=== PATIENT | female | born 1995 | race Caucasian/White ===

== ENCOUNTER → 2016-04-15 | Outpatient (REF) | payer BC, MEDICAID | LOC: M LAB REF 16:49 | PROVIDERS: ATTEND Advanced Practice Midwife | DX: Z34.81 Encounter for supervision of other normal pregnancy, first trimester (principal) ==

== ENCOUNTER → 2016-07-01 | Outpatient (CLI) | payer BC, MEDICAID ==
--- NOTE | 2016-07-01 16:00 | REP ---
Clinical: Anatomical evaluation. Comparison: None . Findings: Examination demonstrates a single live intrauterine in cephalic presentation. motion is identified by technologist. Placenta is noted posteriorly and grade zero without evidence for placenta previa or abruption. Amniotic fluid volume is normal. Cervix measures 3.5 cm in length and appears closed. No evidence for nuchal cord. Gestational age by current measurements 20 weeks 1 day with BRENNON 11/17/2016 . FHR equals 144 beats per minute. BPD 5.1 cm 21 weeks 2 days HC 18.2 cm 20 weeks 4 days AC 14.7 cm 20 weeks 0 days FL 3.2 cm 20 weeks 0 days HL 3.1 cm 20 weeks 2 days HC/AC ratio 1.24 Estimated weight 330 grams ( 43rd percentile). Anatomical assessment demonstrates normal structures including cranium, choroid plexus, cavum, cerebellum/posterior fossa, facial features, lungs, four-chamber heart/ventricular outflow tracts, diaphragm, stomach, cord insertion/three-vessel cord, kidneys/bladder, spine, and extremities. There is a 3 mm echogenic focus likely calcification lateral to the stomach in the left upper quadrant of uncertain significance or etiology. The adjacent and surrounding organs appear intact and normal. Impression: 1. Single live intrauterine in cephalic presentation. 2. Anatomical assessment is complete and normal. 3. Small 3 mm echogenic focus in the left upper quadrant adjacent to the stomach of uncertain significance or etiology. Consider reevaluation in 4-6 weeks. Signed by Endy Vences MD 07/01/2016 03:52 P
== END ==
LOC: M SMT 13:57
PROVIDERS: ATTEND Obstetrics & Gynecology
DX: Z36 Encounter for antenatal screening of mother (principal); Z3A.20 20 weeks gestation of pregnancy

== ENCOUNTER → 2016-07-15 | Outpatient (CLI) | payer BC, MEDICAID ==
--- NOTE | 2016-07-15 14:36 | REP ---
Follow-up obstetric ultrasonography for abdominal left upper quadrant echogenic focus: Comparison is 07/01/2016. There is a single intrauterine gestation in a breech presentation. There is movement and cardiac activity with a heart rate of 136 beats per minute. The placenta is posterior with no previa or abruptio with grade zero maturity. Amniotic fluid volume subjectively is normal. Cervix measures 4.8 centimeters length. heart rate is 144 beats per minute. By today's measurements the gestational age is 22 weeks 0 days with an BRENNON of 11/18/2016. By the first ultrasound during this gestation gestational age is 22 weeks 1 day. weight is 507 grams (1 pound 1 ounce). This is the 54th percentile for 22 weeks 1 day. The previously identified echogenic focus persists on the study today in the abdominal left upper quadrant measuring approximately 3 mm, unchanged. This is nonspecific but could represent a peritoneal calcification related to the stomach, spleen or diaphragm or a mesenteric calcification. The remainder of the anatomy previously was unremarkable and is unremarkable again today. Impression: Persisting small calcification in the abdominal left upper quadrant as described. It is unchanged from the prior study. This is likely a peritoneal or mesenteric calcification. If there is continuing concern for this finding, consider consultation with a dedicated center. Signed by Ravin Coyne MD 07/15/2016 02:27 P
== END ==
LOC: M SMT 13:09
PROVIDERS: ATTEND Advanced Practice Midwife
DX: Z36 Encounter for antenatal screening of mother (principal); Z3A.22 22 weeks gestation of pregnancy

== ENCOUNTER → 2016-08-05 | Outpatient (CLI) | payer BC, MEDICAID ==
[2016-08-05 13:24] LABS: BASO % 0.1 % (0.0-1.0); EOS # 0.6 K/mm3 (0.0-0.50); EOS % 6.4 % (0.0-3.0); LARGE UNSTAINED CELL # 0.1 K/mm3 (0.0-0.4); LARGE UNSTAINED CELL % 0.8 % (0.0-4.0); LYMPH # 1.4 K/mm3 (1.5-6.5); LYMPH % 13.4 % (24.0-44.0); MEAN CORPUSCULAR HEMOGLOBIN 31.5 pg (27.0-33.0); MEAN CORPUSCULAR HGB CONC 34.3 g/dl (32.0-36.5); MEAN CORPUSCULAR VOLUME 91.8 fl (80.0-96.0); MONO # 0.5 K/mm3 (0.0-0.8); MONO % 5.5 % (0.0-5.0); NEUTROPHILS # 7.2 K/mm3 (1.8-7.7); NEUTROPHILS % 73.8 % (36.0-66.0); PLATELET COUNT, AUTOMATED 195 k/mm3 (150-450); RED CELL DISTRIBUTION WIDTH 12.9 % (11.5-14.5); WHITE BLOOD COUNT 9.8 K/mm3 (4.0-10.0)
== END ==
LOC: M SMT 10:08
PROVIDERS: ATTEND Advanced Practice Midwife
DX: Z34.83 Encounter for supervision of other normal pregnancy, third trimester (principal)

== ENCOUNTER → 2016-08-09 | Outpatient (CLI) | payer BC, MEDICAID | LOC: M SMT 08:33 | PROVIDERS: ATTEND Advanced Practice Midwife | DX: Z31.430 Encounter of female for testing for genetic disease carrier status for procreative management (principal) ==

== ENCOUNTER → 2016-08-18 | Outpatient (CLI) | payer BC, MEDICAID ==
[~2016-08-18] MED LIST: ACET50TA PO; PRENTAB9 PO
== END ==
LOC: M LAB 07:50
PROVIDERS: ATTEND Advanced Practice Midwife
DX: Z34.83 Encounter for supervision of other normal pregnancy, third trimester (principal)

== ENCOUNTER → 2016-10-21 | Outpatient (REF) | payer BC, MEDICAID | LOC: M LAB REF 14:40 | PROVIDERS: ATTEND Specialist | DX: Z34.83 Encounter for supervision of other normal pregnancy, third trimester (principal) ==

== ENCOUNTER 2016-10-23 06:58 | Inpatient (IN) | payer BC, MEDICAID ==
[2016-10-23] VITALS (22 sets, daily range): BP systolic 82–130; BP diastolic 47–77
[~2016-10-23] VITALS: Ht 160 cm; Wt 137.8 kg
[2016-10-23] MEDS ORDERED: PRENTAB9 PO (07:15)
[2016-10-23] MEDS ORDERED: ACET50TA PO (07:16)
[2016-10-23] MEDS ORDERED: LR 1,000 ML IV SCH (07:41)
[2016-10-23] MEDS ORDERED: LACTATED RINGER'S 1000 ML IV STA (07:41)
[2016-10-23 07:57] LABS: MEAN CORPUSCULAR HEMOGLOBIN 31.4 pg (27.0-33.0); MEAN CORPUSCULAR VOLUME 87.2 fl (80.0-96.0); RED CELL DISTRIBUTION WIDTH 13.2 % (11.5-14.5); WHITE BLOOD COUNT 12.2 K/mm3 (4.0-10.0)
[2016-10-23] MEDS ORDERED: FENTANYL 2MCG/ML ROPIVACAINE 0.2% IN 0.9% NACL 200ML IVBAG As Ordered ONE (09:13)
[2016-10-23] MEDS ORDERED: EPIDURAL COMMENT XX SCH (12:00)
[2016-10-23] MEDS ORDERED: FENTANYL/ROPIVACAINE/NACL BAG 200 ML EPIDURAL SCH (12:00)
[2016-10-23] MEDS ORDERED: NALOXONE INJ 0.4 MG/1 ML VIAL (J2310) IV PRN (12:00)
[2016-10-23] MEDS ORDERED: EPIDURAL/PCA KEYS XX PRN (12:00)
[2016-10-23] MEDS ORDERED: REFRIGERATOR IV KEYS XX PRN (12:00)
[2016-10-23] MEDS ORDERED: ONDANSETRON 4MG/2ML VIAL (J2405) IV PRN (12:00)
[2016-10-23] MEDS ORDERED: diphenhydrAMINE INJ 50MG/ML VIAL (J1200) IV PRN (12:00)
[2016-10-23] MEDS ORDERED: ePHEDrine SULFATE 25 MG/5 ML(5MG/ML) SYRINGE IV PRN (12:00)
[2016-10-23] MEDS ORDERED: LACTATED RINGER'S 1000 ML IV PRN (12:00)
--- NOTE | 2016-10-23 14:27 | HPE ---
DATE OF ADMISSION: 10/23/2016 21-year-old, 1, para 0, at 36-4/7 weeks gestation by last menstrual period of 02/10/2016 for an estimated date of delivery of 11/16/2016 presents with complaints of contractions starting around of 0300 hours. Upon evaluation, she is 5 cm, 100% effaced, 0 station. She reports active movement. Denies loss of fluid or bleeding. Last menstrual period 02/10/2016 for BRENNON of 11/16/2016. Sono at 8 weeks 6 days confirmed her due date. Prepregnancy weight was 123. Total weight gain 14 pounds. She has been normotensive through the . Last office visit was at 36 weeks 2 days on 10/21/2016. has been uncomplicated with the exception of the onset of labor today. Anatomy scan within normal limits except a noted abdominal foci that was seen on multiple sonograms. Followup at the center was reassuring/.. She is allergic to AMOXICILLIN. Reports hives but no respiratory distress. Medical history is significant for asthma. Family history is noncontributory. is also significant for a depression screen of 14. At the time, she reported relationship issues and sought counseling. GYNECOLOGIC HISTORY: Menarche age 15. Monthly menses every 28 days. Conceived on control pills. No history of sexually transmitted infections. SOCIAL HISTORY: Single. Father of the baby is present at the bedside, supportive. Denies tobacco, alcohol or drugs. OBJECTIVE: Labs are AB+, antibody negative. Initial hemoglobin and hematocrit 12.3 and 36.2 with platelets of 259. Rubella immune. VDRL, hepatitis B, hepatitis C, HIV, gonorrhea, Chlamydia all negative. She was determined to be negative for cystic fibrosis carrier. She declined genetic screening. Group B strep is positive. Sensitivities are pending. Vital signs are stable. She is in no apparent distress, coping well. Breathing with contractions. Breast exam was deferred. Abdomen is soft, nontender, gravid, longitudinal lie, vertex by Monty. Contractions 2-4 minutes apart, 45-60 seconds, moderate to palpation. heart 150, moderate variability with accelerations, category 1 tracing. Sterile vaginal exam: 5 cm, 100% effaced, 0 station, intact membranes and cephalic. ASSESSMENT: 21-year-old, 1, at 36 weeks 4 days gestation, in active labor, category 1 tracing. PLAN: Admit per consultation Dr. Cruz, who is aware of patient's status. Treat for group B strep. She is undecided about an epidural and anticipate normal spontaneous vaginal . MTDD
[2016-10-23] MEDS ORDERED: ceFAZolin SOD 1 GM in D5W MINI-BAG PLUS 50 ML IV SCH (16:00)
[2016-10-23] MEDS ORDERED: OXYTOCIN 30 UNITS IN 0.9% NaCl 500ML IV BAG (J2590) As Ordered ONE (16:45)
[2016-10-23 17:02] LABS: CORD GAS ABE A -8.2; CORD GAS HCO3 A 20.8 MEQ/L; CORD GAS O2 SAT A 31.9 %; CORD GAS PCO2 A 57.5 mmHg; CORD GAS PH A 7.176 UNITS; CORD GAS PO2 A 19.3 mmHg; CORD GAS SBC A 16.6 MEQ/L; CORD GAS TCO2 A 22.6 MEQ/L
[2016-10-23 17:04] LABS: CORD GAS ABE V -9.9; CORD GAS HCO3 V 19.7 MEQ/L; CORD GAS O2 SAT V 31.2 %; CORD GAS PCO2 V 59.2 mmHg; CORD GAS PH V 7.139 UNITS; CORD GAS SBC V 15.4 MEQ/L; CORD GAS TCO2 V 21.5 MEQ/L
[2016-10-23] MEDS ORDERED: OXYTOCIN DRIP 30 UNITS in APPROPRIATE DILUENT 1 EA IV SCH (18:08)
[2016-10-23] MEDS ORDERED: miSOPROStol 200 MCG TAB (S0191) PR ONE (18:15)
[2016-10-23] MEDS ORDERED: ACETAMINOPHEN 500 MG TAB PO PRN (18:15)
[2016-10-23] MEDS ORDERED: ANUSOL HC CREAM 30GM TOP PRN (18:15)
[2016-10-23] MEDS ORDERED: MEASLES,MUMPS,RUBELLA VACCINE INJ (MMR-II) (90707) SC SCH (18:15)
[2016-10-23] MEDS ORDERED: RHOGAM 300 MCG (1500 IU) INJ (J2790) IM SCH (18:15)
[2016-10-23] MEDS ORDERED: DOCUSATE SODIUM 100 MG CAP PO PRN (18:15)
[2016-10-23] MEDS ORDERED: DIBUCAINE 1% OINTMENT 30GM TOP PRN (18:15)
[2016-10-23] MEDS ORDERED: METHYLERGONOVINE MALEATE 0.2 MG TAB PO PRN (18:15)
[2016-10-23] MEDS ORDERED: MOM 30ML SUSPENSION UDC PO PRN (18:15)
[2016-10-23] MEDS: IBUPROFEN 800 MG TAB PO PRN (19:02)
--- NOTE | 2016-10-24 04:20 | DN ---
DATE OF SERVICE: 10/23/2016 Spontaneous active labor. Utilized epidural for labor coping. Artificial rupture of membranes 1307 for small amount of clear fluid, odorless. Fully dilated at 1609. Artificial rupture of membranes forebag at 1627 with blood tinged fluid. With initial push a moderate amount of blood followed. The intensive care unit (NICU) was alerted and Dr. Anthony obrien to be present for delivery. Viable male delivered left occiput anterior (CHRIS) without difficulty. Compound presentation with left fist at 1644 followed by a large gush of blood. Spontaneous respirations and cry. Cord immediately double clamped, cut by father of the baby. brought to [facility] for assessment by Dr. Lisa. scores 9 and 9. Cord gases obtained. Results 7.176 and 7.139. Placenta Ott intact with three-vessel cord at 1645. A 4 cm clot was noted on the periphery. Placenta to pathology. Fundus firmed with massage and intravenous (IV) Pitocin bolus. Misoprostol 1000 mcg rectally. Estimated blood loss 250 mL. Perineum, cervix and vagina inspected. First degree laceration to posterior vaginal wall repaired with 3-0 Vicryl Rapide. Bilateral labial abrasions noted at 11 and 1 o'clock. Right labia was reapproximated with one stitch. Sponge, sharp and instrument count correct. weight 5 pounds 5 ounces, 2416 grams. Parents are naming their son Able. was attended by Ivelisse Bell, student nurse psychotherapist and myself.
[2016-10-24 06:00] VITALS: BP 104/56
[2016-10-24] MEDS: PRENATAL VITAMINS CHEWABLE TABLET PO SCH (07:57)
[2016-10-24] MEDS: IBUPROFEN 800 MG TAB PO PRN ×2 (09:12→20:27)
[2016-10-24 18:00] VITALS: BP 110/62
[2016-10-25 06:06] VITALS: BP 104/53
[2016-10-25] MEDS: PRENATAL VITAMINS CHEWABLE TABLET PO SCH (07:35)
== END 2016-10-25 10:44 | disposition home or self-care (01) | DRG 560 ==
LOC: M LDO 06:58 → M LDI 07:47 → M OBS 19:15
PROVIDERS: ADMIT Advanced Practice Midwife; ATTEND Specialist
PROC: 10E0XZZ Delivery of Products of Conception, External Approach (ICD-10-PCS; principal; 2016-10-23)
PROC: 10907ZC Drainage of Amniotic Fluid, Therapeutic from Products of Conception, Via Natural or Artificial Opening (ICD-10-PCS; 2016-10-23)
PROC: 0HQ9XZZ Repair Perineum Skin, External Approach (ICD-10-PCS; 2016-10-23)
DX: O60.14X0 Preterm labor third trimester with preterm delivery third trimester, not applicable or unspecified (principal); O45.93 Premature separation of placenta, unspecified, third trimester; O64.5XX0 Obstructed labor due to compound presentation, not applicable or unspecified; Z3A.36 36 weeks gestation of pregnancy; Z88.8 Allergy status to other drugs, medicaments and biological substances; J45.909 Unspecified asthma, uncomplicated; O70.0 First degree perineal laceration during delivery; Z79.899 Other long term (current) drug therapy; O99.824 Streptococcus B carrier state complicating childbirth; O99.52 Diseases of the respiratory system complicating childbirth; Z37.0 Single live birth

== ENCOUNTER → 2016-12-05 | Outpatient (REF) | payer BC, MEDICAID ==
[2016-12-05 21:07] LABS: THYROXINE (T4) 10.1 UG/DL (4.5-12.0)
== END ==
LOC: M LABSMT 17:04
PROVIDERS: ATTEND Advanced Practice Midwife
DX: F32.89 Other specified depressive episodes (principal)

== ENCOUNTER → 2018-03-14 | Outpatient (REF) | payer BC, MEDICAID ==
[~2018-03-14] MED LIST changes: -ACET50TA PO; +MAPA500T2 PO
== END ==
LOC: M SFHCLERA 16:41
PROVIDERS: ATTEND Nurse Practitioner Family
DX: J02.9 Acute pharyngitis, unspecified (principal)

== ENCOUNTER → 2018-04-30 | Outpatient (REF) | payer BC, MEDICAID | LOC: M LAB REF 19:41 | PROVIDERS: ATTEND Advanced Practice Midwife | DX: Z12.4 Encounter for screening for malignant neoplasm of cervix (principal); R87.612 Low grade squamous intraepithelial lesion on cytologic smear of cervix (LGSIL) ==

== ENCOUNTER → 2018-06-28 | Outpatient (REF) | payer BC, MEDICAID ==
[2018-06-28 13:56] LABS: BASO % 0.2 % (0.0-1.0); EOS # 5.6 10^3/uL (0.0-0.50); HEMATOCRIT 41.6 % (36.0-47.0); HEMOGLOBIN 14.1 g/dl (12.0-15.5); LYMPH # 2.7 10^3/uL (1.5-6.5); LYMPH % 19.1 % (24.0-44.0); MEAN CORPUSCULAR HEMOGLOBIN 30.5 pg (27.0-33.0); MEAN CORPUSCULAR HGB CONC 33.9 g/dl (32.0-36.5); MEAN CORPUSCULAR VOLUME 89.8 fl (80.0-96.0); MONO # 0.9 10^3/uL (0.0-0.8); MONO % 6.6 % (0.0-5.0); NEUTROPHILS # 4.8 10^3/uL (1.8-7.7); NEUTROPHILS % 33.8 % (36.0-66.0); PLATELET COUNT, AUTOMATED 329 10^3/uL (150-450); RED BLOOD COUNT 4.63 10^6/uL (4.00-5.40); WHITE BLOOD COUNT 14.1 10^3/uL (4.0-10.0)
== END ==
LOC: M LAB REF 13:34
PROVIDERS: ATTEND Internal Medicine Pulmonary Disease
DX: J45.40 Moderate persistent asthma, uncomplicated (principal)

== ENCOUNTER → 2018-09-14 | Outpatient (CLI) | payer BC, MEDICAID ==
[2018-09-14 17:54] LABS: BASO % 0.1 % (0.0-1.0); EOS # 1.7 10^3/uL (0.0-0.50); HEMATOCRIT 39.1 % (36.0-47.0); HEMOGLOBIN 13.1 g/dl (12.0-15.5); LYMPH # 1.9 10^3/uL (1.5-6.5); LYMPH % 21.2 % (24.0-44.0); MEAN CORPUSCULAR HEMOGLOBIN 29.9 pg (27.0-33.0); MEAN CORPUSCULAR HGB CONC 33.5 g/dl (32.0-36.5); MEAN CORPUSCULAR VOLUME 89.3 fl (80.0-96.0); MONO # 0.8 10^3/uL (0.0-0.8); NEUTROPHILS # 4.5 10^3/uL (1.8-7.7); NEUTROPHILS % 50.6 % (36.0-66.0); PLATELET COUNT, AUTOMATED 291 10^3/uL (150-450); RED BLOOD COUNT 4.38 10^6/uL (4.00-5.40); WHITE BLOOD COUNT 8.9 10^3/uL (4.0-10.0)
[2018-09-21 13:09] LABS: IGE ASPERGILLUS TERREUS <0.35 kU/L (<0.35)
== END ==
LOC: M SMT 15:43
PROVIDERS: ATTEND Internal Medicine Pulmonary Disease
DX: J45.40 Moderate persistent asthma, uncomplicated (principal)

== ENCOUNTER → 2020-08-21 | Outpatient (CLI) | payer BC, MEDICAID ==
[2020-08-21 13:55] LABS: HEMATOCRIT 37.2 % (36.0-47.0); HEMOGLOBIN 12.4 g/dl (12.0-15.5); MEAN CORPUSCULAR HEMOGLOBIN 30.2 pg (27.0-33.0); MEAN CORPUSCULAR HGB CONC 33.3 g/dl (32.0-36.5); MEAN CORPUSCULAR VOLUME 90.5 fl (80.0-96.0); PLATELET COUNT, AUTOMATED 236 10^3/uL (150-450); RED BLOOD COUNT 4.11 10^6/uL (4.00-5.40); WHITE BLOOD COUNT 9.9 10^3/uL (4.0-10.0)
[2020-08-21 15:14] LABS: HIV 1&2 SCREEN CENTAUR NEGATIVE (NEGATIVE)
[2020-08-21 15:32] LABS: GC DNA AMPLIFICATION NEGATIVE (NEGATIVE)
== END ==
LOC: M PLALAB 11:18
PROVIDERS: ATTEND Advanced Practice Midwife
DX: Z34.01 Encounter for supervision of normal first pregnancy, first trimester (principal)

== ENCOUNTER → 2020-10-16 | Outpatient (REF) | payer BC, MEDICAID | LOC: M SFHCWAGY 13:00 | PROVIDERS: ATTEND Obstetrics & Gynecology | DX: O99.512 Diseases of the respiratory system complicating pregnancy, second trimester (principal); Z12.4 Encounter for screening for malignant neoplasm of cervix; R87.611 Atypical squamous cells cannot exclude high grade squamous intraepithelial lesion on cytologic smear of cervix (ASC-H) | CPT/HCPCS: 87086; G0123 ==

== ENCOUNTER → 2020-10-23 | Outpatient (REF) | payer BC, MEDICAID | LOC: M PLALAB 16:20 | PROVIDERS: ATTEND Obstetrics & Gynecology | DX: R85.612 Low grade squamous intraepithelial lesion on cytologic smear of anus (LGSIL) (principal); Z53.9 Procedure and treatment not carried out, unspecified reason ==

== ENCOUNTER → 2020-11-06 | Outpatient (CLI) | payer BC, MEDICAID ==
--- NOTE | 2020-11-06 10:10 | REP ---
INDICATION: ANATOMY. COMPARISON: None. TECHNIQUE: Real-time sonographic evaluation of the gravid uterus performed. FINDINGS: Estimated gestational age is19 weeks 5 days, EDC 03/28/2021. Today's measurements indicate appropriate growth. Presentation: Variable Placenta posterior, grade 0, without evidence of placenta previa. heart rate is recorded at 143 beats per minute. Amniotic fluid is subjectively normal. Closed cervical length is measured at 4.2 cm. Biometry chart: BPD: 47 mm, 20 weeks 1 days, 61st percentile. HC: 174 mm, 20 weeks 0 days, 57th percentile AC: 147 mm, 20 weeks 0 days, 55th percentile Femur length: 33 mm, 20 weeks 2 days, 63rd percentile HC to AC ratio: 1.19, normal range 1.06-1.25. Estimated weight: 331g, 67th percentile. anatomy: Cranium: Grossly normal Lateral Ventricles/Choroid Plexus: Grossly normal Posterior Fossa/Cerebellum: Grossly normal Nose/lips/profile: Grossly normal Four chamber heart: Grossly normal Right ventricular outflow tract: Grossly normal Left ventricular outflow tract: Grossly normal Left-sided stomach: Grossly normal Kidneys: Grossly normal Bladder: Grossly normal Cord Insertion: Grossly normal 3 vessel cord: Grossly normal Spine: Grossly normal IMPRESSION: Viable single intrauterine gestation as above. <Electronically signed by Ravin Manzo > 11/06/20 1007
== END ==
LOC: M WHC 08:29
PROVIDERS: ATTEND Obstetrics & Gynecology
DX: Z34.81 Encounter for supervision of other normal pregnancy, first trimester (principal); Z3A.19 19 weeks gestation of pregnancy

== ENCOUNTER 2021-02-17 13:56 | Outpatient (CLI) | payer BC, MEDICAID ==
[~2021-02-17] VITALS: Ht 160 cm; Wt 69.1 kg
[2021-02-17 14:26] VITALS: BP 116/67
[2021-02-17] MEDS ORDERED: BETAMETHASONE SOLUSPAN 6MG/ML 5ML VIAL (J0702 PER 3MG) IM SCH (16:00)
[2021-02-17 16:13] VITALS: BP 112/76
[2021-02-17 17:16] VITALS: BP 115/63
[2021-02-17 18:51] VITALS: BP 119/64
[2021-02-17 20:01] VITALS: BP 128/71
[2021-02-18] MEDS ORDERED: CLAR10CA3 PO (15:37)
[2021-02-18] MEDS ORDERED: MONT10TA10 PO (15:37)
[2021-02-18] MEDS ORDERED: PROAAER10 INH (15:37)
[2021-02-18] MEDS ORDERED: NUCA1INJ SC (15:37)
[2021-02-18] MEDS ORDERED: HYDR200T3 PO (15:37)
== END 2021-02-17 20:05 | disposition home or self-care (01) ==
LOC: M LDO 13:56
PROVIDERS: ATTEND Advanced Practice Midwife
DX: O60.03 Preterm labor without delivery, third trimester (principal); O99.513 Diseases of the respiratory system complicating pregnancy, third trimester; J45.909 Unspecified asthma, uncomplicated; Z3A.34 34 weeks gestation of pregnancy; Z87.51 Personal history of pre-term labor; Z88.0 Allergy status to penicillin; Z88.1 Allergy status to other antibiotic agents
CPT/HCPCS: 59025; 76815; 76819; 76820; 87081; 96372; G0378; G0463; J0702

== ENCOUNTER 2021-02-18 15:03 | Outpatient (CLI) | payer BC, MEDICAID ==
[~2021-02-18] VITALS: Ht 160 cm; Wt 69.8 kg
[2021-02-18 15:22] VITALS: BP 116/70
[2021-02-18] MEDS ORDERED: NUCA1INJ SC (15:37)
[2021-02-18] MEDS ORDERED: MONT10TA97 PO (15:37)
[2021-02-18] MEDS ORDERED: HYDR200T3 PO (15:37)
[2021-02-18] MEDS ORDERED: PROAAER10 INH (15:37)
[2021-02-18] MEDS ORDERED: CLAR10CA3 PO (15:37)
[2021-02-18] MEDS ORDERED: HOME MED LIST COMPLETE! XX SCH (15:40)
[2021-02-18] MEDS ORDERED: BETAMETHASONE SOLUSPAN 6MG/ML 5ML VIAL (J0702 PER 3MG) IM SCH (16:40)
[2021-02-18 16:51] VITALS: BP 114/65
== END 2021-02-18 17:05 | disposition home or self-care (01) ==
LOC: M LDO 15:03
PROVIDERS: ATTEND Obstetrics & Gynecology
DX: O60.03 Preterm labor without delivery, third trimester (principal); Z3A.34 34 weeks gestation of pregnancy
CPT/HCPCS: 59025; 81001; 96372; G0378; G0463; J0702

== ENCOUNTER → 2021-10-22 | Outpatient (REF) | payer OTHER ==
[~2021-10-22] MED LIST changes: +ACET-683 PO; +BREO1INH3 PO; +CLAR10CA3 PO; +HYDR200T3 PO; +IBUP80TA PO; +MONT10TA97 PO; +NUCA1INJ SC; +OMEP10CASR PO; +PROAAER10 INH
== END ==
LOC: M PLALAB 15:11
PROVIDERS: ATTEND Nurse Practitioner Family
DX: Z12.4 Encounter for screening for malignant neoplasm of cervix (principal); R87.612 Low grade squamous intraepithelial lesion on cytologic smear of cervix (LGSIL)

== ENCOUNTER → 2021-12-30 | Outpatient (REF) | payer OTHER | LOC: M SFHCWAGY 17:22 | PROVIDERS: ATTEND Obstetrics & Gynecology | DX: R87.612 Low grade squamous intraepithelial lesion on cytologic smear of cervix (LGSIL) (principal) ==

== ENCOUNTER 2022-12-23 12:21 | Day surgery (SDC) | payer OTHER ==
[~2022-12-23] VITALS: Ht 160 cm; Wt 81.2 kg
[~2022-12-23 12:21] MED LIST changes: +BUDE0.254 INH; +DEBL1TAB PO; -HYDR200T3 PO; +HYDR200T46 PO; +LINZ145C PO; +NS 1,000 ML IV ONE; +SERT25TA85 PO
[2022-12-23] MEDS ORDERED: LIDOCAINE 2% 100MG/5ML SDV (FOR ANES.) As Ordered ONE (14:33)
[2022-12-23] MEDS ORDERED: propofoL 500 MG/50 ML VIAL As Ordered ONE (14:33)
[2022-12-23] MEDS ORDERED: VENTAER (15:06)
[2022-12-23] MEDS ORDERED: fentaNYL 100 MCG/2 ML INJECTION As Ordered ONE (16:22)
[2022-12-23] MEDS ORDERED: propofoL 200 MG/20 ML VIAL As Ordered ONE (16:34)
[2022-12-23] MEDS ORDERED: ALBUTEROL 6.7GM INHALER **FOR ANES. CART/OMNICELL ONLY As Ordered ONE (16:55)
[2022-12-23 17:00] VITALS: BP 128/70; TEMP 97; O2SAT 97
== END 2022-12-23 17:37 | disposition home or self-care (01) ==
LOC: M OPP 12:21
PROVIDERS: ATTEND Internal Medicine Gastroenterology
DX: K64.8 Other hemorrhoids (principal); K58.2 Mixed irritable bowel syndrome; K29.70 Gastritis, unspecified, without bleeding; K31.89 Other diseases of stomach and duodenum; K20.0 Eosinophilic esophagitis; Z79.3 Long term (current) use of hormonal contraceptives; Z79.51 Long term (current) use of inhaled steroids; Z79.52 Long term (current) use of systemic steroids; Z79.620 Long term (current) use of immunosuppressive biologic; Z79.899 Other long term (current) drug therapy; Z88.0 Allergy status to penicillin; Z88.1 Allergy status to other antibiotic agents
CPT/HCPCS: 43239; 45380; 81025; 88305; J3010

== ENCOUNTER → 2023-02-02 | Outpatient (REF) | payer OTHER, BC ==
[~2023-02-02] MED LIST changes: -NS 1,000 ML IV ONE; +VENTAER
== END ==
LOC: M SFHCWAGY 10:33
PROVIDERS: ATTEND Nurse Practitioner Family
DX: Z12.4 Encounter for screening for malignant neoplasm of cervix (principal); R87.610 Atypical squamous cells of undetermined significance on cytologic smear of cervix (ASC-US)

== ENCOUNTER → 2023-03-16 | Outpatient (REF) | payer OTHER, BC | LOC: M SFHCWAGY 13:15 | PROVIDERS: ATTEND Nurse Practitioner Family | DX: N39.0 Urinary tract infection, site not specified (principal) ==

== ENCOUNTER → 2023-05-12 | Outpatient (CLI) | payer OTHER | LOC: M PLAIMG 14:07 | PROVIDERS: ATTEND Otolaryngology | DX: J32.4 Chronic pansinusitis (principal); J34.89 Other specified disorders of nose and nasal sinuses ==

== ENCOUNTER 2023-08-28 09:07 | Day surgery (SDC) | payer OTHER ==
[~2023-08-28] VITALS: Ht 160 cm; Wt 78.0 kg
[~2023-08-28 09:07] MED LIST changes: +IMUR50TA10 PO; -VENTAER; +VENTAER INH
[2023-08-28] MEDS: LR 1,000 ML IV SCH (10:00)
[2023-08-28] MEDS ORDERED: MIDAZOLAM INJ 2MG/2ML VIAL As Ordered ONE (10:39)
[2023-08-28] MEDS ORDERED: fentaNYL 100 MCG/2 ML INJECTION As Ordered ONE (10:40)
[2023-08-28] MEDS: COCAINE 4% 4ML NASAL SOLUTION BTL As Ordered ONE (11:00)
[2023-08-28] MEDS ORDERED: LIDOCAINE 2% 100MG/5ML SDV (FOR ANES.) As Ordered ONE (11:08)
[2023-08-28] MEDS ORDERED: ONDANSETRON 4MG 2ML VIAL As Ordered ONE (11:08)
[2023-08-28] MEDS ORDERED: propofoL 200 MG/20 ML VIAL As Ordered ONE (11:08)
[2023-08-28] MEDS: LIDOCAINE W/EPINEPHRINE 1% 20ML VIAL As Ordered ONE (11:55)
[2023-08-28] MEDS ORDERED: ACETAMINOPHEN 1000MG 100ML IV BAG As Ordered ONE (12:14)
[2023-08-28] MEDS: OXYMETAZOLINE 0.05% NASAL SPRAY (AFRIN) As Ordered ONE (12:20)
[2023-08-28] MEDS ORDERED: HYDROmorphone HCL 2MG/ML 1ML VIAL As Ordered ONE (12:58)
[2023-08-28] MEDS ORDERED: fentaNYL 100 MCG/2 ML INJECTION IV PRN (14:10)
[2023-08-28] MEDS: PERCOCET 5MG/325MG TAB PO PRN (15:06)
[2023-08-28] MEDS: ONDANSETRON 4MG 2ML VIAL IV PRN (15:06)
[2023-08-28 16:09] VITALS: BP 130/77; TEMP 97.9; O2SAT 96
== END 2023-08-28 16:14 | disposition home or self-care (01) ==
LOC: M SDC 09:07
PROVIDERS: ATTEND Otolaryngology
DX: J32.9 Chronic sinusitis, unspecified (principal); F41.9 Anxiety disorder, unspecified; J45.909 Unspecified asthma, uncomplicated; Z79.51 Long term (current) use of inhaled steroids; K21.9 Gastro-esophageal reflux disease without esophagitis; K58.8 Other irritable bowel syndrome; M32.9 Systemic lupus erythematosus, unspecified; Z88.0 Allergy status to penicillin
CPT/HCPCS: 31253; 31259; 31267; 81025; 88305; C9143; J0131; J1100; J1170; J2250; J2405; J3010

== ENCOUNTER → 2024-08-22 | Outpatient (CLI) | payer OTHER ==
[2024-08-22 14:09] LABS: PLATELET COUNT, AUTOMATED 304 10^3/uL (150-450)
[2024-08-22 14:14] LABS: ALT/SGPT 15 U/L (7.0-40); AST/SGOT 16 U/L (<34); CALCIUM LEVEL 9.4 MG/DL (8.5-10.1); CARBON DIOXIDE LEVEL 27 MMOL/L (20-31); CHLORIDE LEVEL 105 MMOL/L (98-107); CREATININE FOR GFR 0.71 MG/DL (0.55-1.30); GLOMERULAR FILTRATION RATE > 90.0 (>60); POTASSIUM SERUM 4.2 MMOL/L (3.5-5.1); SODIUM LEVEL 141 MMOL/L (136-145)
[2024-08-22 14:16] LABS: FREE T4 1.32 NG/DL (0.89-1.76)
== END ==
LOC: M PLALAB 10:41
PROVIDERS: ATTEND Advanced Practice Midwife
DX: Z01.419 Encounter for gynecological examination (general) (routine) without abnormal findings (principal)

== ENCOUNTER → 2024-08-22 | Outpatient (REF) | payer OTHER | LOC: M PLALAB 10:14 | PROVIDERS: ATTEND Advanced Practice Midwife | DX: Z12.4 Encounter for screening for malignant neoplasm of cervix (principal); Z53.9 Procedure and treatment not carried out, unspecified reason ==